=== PATIENT | female | born 1935 | race Caucasian/White ===

== ENCOUNTER 2020-02-13 10:00 | Day surgery (SDC) | payer MEDICARE, OTHER ==
[~2020-02-13] VITALS: Ht 160 cm; Wt 63.0 kg
[~2020-02-13 10:00] MED LIST: B-121000 MCG PO; CARVEDILOL25 MG PO; COUMADIN2.5 MG PO; COUMADIN5 MG PO; FERGON240 MG PO; LORAZEPAM1 MG PO; LOVASTATIN20 MG PO; MELATONIN10 M2 PO; OMEPRAZOLE20 MG PO; SALSALATE500 MG PO; VITAMIN D31000 UNI1 PO
[2020-02-13] MEDS ORDERED: HYDROCODON-ACE1 EA10 PO (14:01)
--- NOTE | 2020-02-13 14:06 | NUR ---
02/13/20 1406 Marya Soni 1401- PT TO PACU IN SF POSITION. EYES OPEN AND FOLLOWS COMMANDS APPROPRIATELY. DENIES PAIN OR NAUSEA. CMS TO L EXTREMITY INTACT. BREATHING EASY AND UNLABORED. SPO2 >95% ON ROOM AIR.
--- NOTE | 2020-02-14 07:06 | OR ---
[facility] [address] [place], [place] [address] Signed DATE OF OPERATION: 02/13/2020 SURGEON: Rodney Chiu MD POSTOPERATIVE DIAGNOSIS: Left carpal tunnel syndrome. POSTOPERATIVE DIAGNOSIS: Left carpal tunnel syndrome. PROCEDURE PERFORMED: Left carpal tunnel release. SPRING TESTER: Toñito SOLANO. ANESTHESIA: Benny block. TOURNIQUET TIME: 20 minutes. BRIEF HISTORY: Ashlyn is an 84-year-old female with progressive worsening of numbness and tingling in her hands. Risks and benefits of operative treatment were discussed with her and she elected to proceed. DESCRIPTION OF PROCEDURE: Once consent was obtained, she was taken to the operating room after adequate anesthesia. She was placed on operating room table. All downside pressure points were well padded. The left hand was prepped and draped in a standard sterile fashion. The carpal tunnel was approached through a 1.5 cm incision in the distal wrist crease. This was carried through the soft tissue and the palmaris longus was identified, retracted, and protected. The transverse carpal ligament was then dissected free of overlying soft tissue and under loupe magnification was released proximally 1 cm distally to the distal extent. This was palpated using the [place] and found to be completely released. The wound was copiously irrigated with antibiotic solution, closed with 3-0 nylon and injected with 4 mL of 0.25% plain Marcaine. Wound was dressed with bacitracin, Adaptic, 4 x 8s, and gauze. She tolerated the procedure well. All sponge, needle, and instrument counts were correct. Electronically Signed By: RODNEY CHIU MD 02/14/20 0706 PATIENT NAME: ASHLYN ANDRADE OPERATIVE REPORT DATE OF : 35 REPORT #: [id number] PHYSICIAN: RODNEY CHIU MD PCP: GUS RICE MD REPORT IS CONFIDENTIAL AND NOT TO BE RELEASED WITHOUT AUTHORIZATION [address] [address] Signed Rodney Chiu MD /MODL /[id number] Copies: ~ Electronically Signed By: RODNEY CHIU MD 02/14/20 0706 PATIENT NAME: ASHLYN ANDRADE OPERATIVE REPORT DATE OF : 35 REPORT #: [id number] PHYSICIAN: RODNEY CHIU MD PCP: GUS RICE MD REPORT IS CONFIDENTIAL AND NOT TO BE RELEASED WITHOUT AUTHORIZATION
== END 2020-02-13 14:40 | disposition home or self-care (01) ==
LOC: DS 10:00
PROVIDERS: Specialist
PROC: 01N50ZZ Release Median Nerve, Open Approach (ICD-10-PCS; principal; 2020-02-13 11:45)
DX: G56.02 Carpal tunnel syndrome, left upper limb (principal); Z79.899 Other long term (current) drug therapy; Z87.891 Personal history of nicotine dependence
CPT/HCPCS: 01810; J0690; J2704; J7121

== ENCOUNTER 2020-08-05 22:09 | Inpatient (IN) | payer MEDICARE, OTHER ==
[~2020-08-05] VITALS: Ht 160 cm; Wt 67.1 kg
[~2020-08-05 22:09] MED LIST changes: -COUMADIN5 MG PO; +HYDROCODON-ACE1 EA10 PO; -MELATONIN10 M2 PO; +MELATONIN5 M2 PO; +WARFARIN SODIUM5 MG PO
--- NOTE | 2020-08-06 07:02 | NUR ---
pt ARRIVES TO [place] VIA STRETCHER. VILLA CATHETER IN PLACE. IVF INFUSING WNL. TRANSFERRED TO HOSPITAL BED WITH 4PA. pt PAINFUL WITH TRANSFER, RATES PAIN 7/10 IN LEFT LEG. PRN PAIN MEDICATION ADMINISTERED. ORIENTATION TO ROOM, NPO STATUS PROVIDED. CALL LIGHT AND PERSONAL SUPPLIES IN REACH. pt VERBALIZES UNDERSTANDING TO NPO, USING CALL LIGHT.
[2020-08-06] MEDS ORDERED: VITAMIN B-6100 MG PO (09:14)
--- NOTE | 2020-08-06 09:20 | NUR ---
ROUNDED WITH DR BALES. PLAN OF CARE DISCUSSED WITH PT. ASSISTED PRIMARY NURSE IN PLACING BUCKS TRACTION. PT TOLERATED OKAY.
--- NOTE | 2020-08-06 09:38 | NUR ---
Medications reconciled with patient interview
--- NOTE | 2020-08-06 09:48 | NUR ---
5lbs bucks traction placed to LLE per provider order. LLE is shortenned with external rotation. CMS intact, strong pedal pulse, cap refill less than three seconds. Patient educated on traction and plan of care. Ensure provided to patient at this time.
--- NOTE | 2020-08-06 09:48 | NUR ---
5lbs bucks traction placed to LLE per provider order. LLE is shortened. CMS intact, good pedal pulse, cap refill less than three seconds. Patient educated on tranction and plan of care. Ensure provided to patient at this time.
--- NOTE | 2020-08-06 09:53 | NUR ---
PATIENT IN BED RESTING. VITALS AND I&O'S CHARTED. AM CARE DONE. CALL LIGHT IN REACH. NO FURTHER NEEDS AT THIS TIME.
--- NOTE | 2020-08-06 12:05 | NUR ---
[place] 7.5/325mg po admin for reports of 12/20 LLE.
--- NOTE | 2020-08-06 13:30 | NUR ---
Spoke with Ashlyn and updated I spoke with Dr. Chiu this am. He states patient will need to be nwb for 4-8 weeks. Pt plans on going home and having a friend assist her. She has contacted friends and neighbors to find someone to stay and care for her and her animals. I discussed with her this will be personal care such and help getting on and off the toilet, wiping, bathing. She will need someone who can assist her with personal care and not just to care for her animals. We discussed Dr would prefer she go to a SNF until she can bear weight. Pt declines, I requested she keep an open mind and work with OT/PT and this will tell her what she will be able to manage at home. She does state concern she will get hurt again and the would be upset if he had to do another surgery. I will check on pt daily, at this time she remains completely against placement. She does have 3 children and 2 who live in the area. She does not want to ask them for help with her 3 dogs and 2 cats. She is in a one story with 2 steps. She states she uses a cane daily.
--- NOTE | 2020-08-06 14:48 | NUR ---
PT ALERT, ORIENTED AND SITTING UP IN BED WATCHING TV. PT'S FALL HAS REALLY DERAILED HER LIFE SHE DESCRIBES IT. CONCERNED ABOUT HER ANIMALS AND FOLLOWING SURGERY TOMORROW WOULD LIKE VISIT FROM . PT FEELS SHE NEEDS TO REESTABLISH HER CARON THAT SHE HAS BEEN NEGLIGENT ON FOR SOME TIME. GAVE ENCOURAGEMENT, DISCUSSED POST SURGERY CARE. PT ADAMANT ABOUT NOT GOING TO SNF FOR REHAB. FEELS SHE CAN DO JUST FINE WITH SOME HELP FROM FRIENDS. DISCUSSED SOME POSSIBILITIES. PT SAID SHE WILL CONSIDER AND WILL WAIT TO VISIT WITH LILY PIPER AGAIN. PT REQUESTED PRAYER, ACCEPTED [facility]RIS AND [facility]W
--- NOTE | 2020-08-06 15:04 | NUR ---
PATIENT IN BED WATCHING TV. VITALS AND I&O'S CHARTED. TELE #7 PUT ON UPON RN REQUEST. CALL LIGHT IN REACH. NO FURTHER NEEDS AT THIS TIME.
--- NOTE | 2020-08-06 15:23 | NUR ---
IMAGING IN FOR ECHO.
--- NOTE | 2020-08-06 17:08 | NUR ---
PT IN BED RESTING. IN TO DO ASSESSENT PATIENT ORIENTED TO TIME AND PLACE. DENIES ANY NEED OR DISCOMFORT. PT STATES PAIN IS AT A "5" AND SHE DOES NOT NOTICE THE PAIN UNTIL SHE TRIES TO MOVE HER LEG. HEATH TRACTION ON HER LLE AND SPD ON THE LRE. HEAL PROTECTORS IN PLACE. NO CONCERNS AT THIS TIME. CALL LIGHT WITHIN REACH.
--- NOTE | 2020-08-06 18:21 | NUR ---
Patient in bed watching tv at this time. Patient reports her left leg feels better in the tranction. CMS remains intact to LLE. 5lbs traction continues to be intact and free of obstruction. Patient denies needs.
--- NOTE | 2020-08-06 18:26 | NUR ---
PATIENT IN BED WATCHING TV. ORAL CARE DONE. VITALS AND I&O'S CHARTED IN. CALL LIGHT IN REACH. NO FURTHER NEEDS AT THIS TIME.
--- NOTE | 2020-08-06 19:20 | NUR ---
CHARGE NURSE REPORT RECEIVED FROM [facility]. PT IN BED, BUCKS TRACTION, WEIGHT SUSPENDED FREELY. NO NEEDS AT THIS TIME.
--- NOTE | 2020-08-06 19:50 | NUR ---
REPORT RECEIVED FROM DAY SHIFT RN. PT LYING IN BED ALERT AND ORIENTED. #5 BUCKS TRACTION HANGING FREELY FROM BED. LEFT LEG SHORTENED AND EXTERNALLY ROTATED. CMS INTACT. PT REPORTS PAIN IS TOLERABLE AT THIS TIME. NO FURTHER NEEDS. WHITE BOARD UPDATED. CALL LIGHT IN REACH.
--- NOTE | 2020-08-06 19:56 | NUR ---
SPOKE WITH DR. BALES REGARDING PT'S O6OO SCHEDULED PO PAIN MEDS. DR. BALES INSTRUCTED TO HOLD MEDICATIONS GIVEN PT NPO STATUS AND [address] BALES OK'D TO GIVE 0200 SCHEDULED ULTRAM WITH A SIP OF WATER.
--- NOTE | 2020-08-06 22:20 | NUR ---
EVENING ASSESSMENT COMPLETE. SCHEDULED MEDS ADMINISTERED PER EMAR. PT REPORTS PAIN 3/10 IN LEFT LEG BUT IS TOLERABLE " LONG IT DOESN'T MOVE". LLE IN #5 BUCKS TRACTION HANGING FREELY FROM THE BED. CMS INTACT. VILLA PATENT WITH CLEAR YELLOW URINE. HR IRREGULAR. TELE #[address], HR IN THE 70'S. ASSISTED PT TO REPOSITION IN BED. DENIES QUESTIONS OR CONCERNS. BED ALARM FOR SAFETY. CALL LIGHT IN REACH.
--- NOTE | 2020-08-07 00:59 | NUR ---
NEW BAG IVF HUNG. PT AWAKENS WHEN THIS QUARTER SECTION IRONER IN ROOM. PT AGREES SHE IS COMFORTABLE. DENIES NEEDS.
--- NOTE | 2020-08-07 02:33 | NUR ---
VS AND I&O COMPLETE. PT REPORTS LEFT HIP PAIN 08/22. SCHEDULED MEDS ADMINISTERED WITH SIPS OF WATER PER DR. BALES. PT NPO OTHERWISE. 5# BUCKS TRACTION IN PLACE. CMS INTACT. HP IN PLACE. VILLA PATENT. IVF INFUSING PER ORDER. NO FURTHER NEEDS AT THIS TIME. CALL LIGHT IN REACH.
--- NOTE | 2020-08-07 05:10 | NUR ---
V/S AND I&O TAKEN AND RECORDED. PRE OP WIPES DONE.
--- NOTE | 2020-08-07 05:38 | NUR ---
PRE-PROCEDURE WIPE DOWN COMPLETE. CLEAN LINEN AND GOWN PROVIDED. PT REPORTS PAIN IN LEFT HIP IS "STABILIZED" BUT DOES REPORT SPASMS WITH MOVEMENT. LEFT LEG CONTINUES TO BE SWOLLEN. ALSO NOTED TO BE SHORTENED AND EXTERNALLY ROTATED. #[address], ROPE AND WEIGHT FREE FROM TOUCHING ANYTHING. CMS INTACT. SCD'S AND HP IN PLACE. VILLA PATENT. IVF INFUSING. PT DENIES QUESTIONS OR CONCERNS. CALL LIGHT IN REACH.
--- NOTE | 2020-08-07 06:15 | NUR ---
PT OFF FLOOR TO PACU WITH OR NURSE MARILEE.
--- NOTE | 2020-08-07 07:35 | NUR ---
this rn received report from veronika leblanc. pt off floor for procedure at this time
--- NOTE | 2020-08-07 10:27 | NUR ---
08/07/20 Javier7 Zenaida Chiu 0926 PT TO PACU FROM OR SLEEPING O2 ON 7L VIA MASK.
--- NOTE | 2020-08-07 10:50 | NUR ---
Assisted Rn from PACU to move bed from hallway into patients room on arrival to floor. Pt is awake and denies complaint. Denies pain and is drowsy.
--- NOTE | 2020-08-07 10:53 | NUR ---
PT ARRIVED FROM PACU VIA STRETCHER. THIS RN RECEIVED REPORT AND TO ASSUME CARE OF PT. PT ARRIVE ON ROOM AIR BUT DOES GET DROWSY THIS RN TO UT PT ON 1L NC. PT TOELRATING WELL ND IS ALERT AND ORIENTED X4. PT STATES PAIN HER PAIN IS AT A 2/10 AND IS TOLERABLE AT THIS TIME. PT STATES THAT SHE HAS NO NAUSEA AT THIS TIME. PTS DRESSING IS CLEAN/ DRY/ INTACT- CRYO CUFF IN PLACE
--- NOTE | 2020-08-07 11:15 | NUR ---
THIS RN IN PTS ROOM WITH [facility] SUPERVISOR FRYER F[employer] SEVEN. PT STATES THAT HER PAIN IS 2/10. OTHERWISE PT IS DOING WELL. PTS INCISION IS CLEAN/ DRY/ INTACT
--- NOTE | 2020-08-07 12:06 | EKG ---
[facility] [address] [facility] [place] [address] Signed Sinus rhythm with premature supraventricular complexes ST \T\ T wave abnormality, consider lateral ischemia Abnormal ECG When compared with ECG of 09-FEB-2020 15:52, premature supraventricular complexes are now present Nonspecific T wave abnormality now evident in Inferior leads T wave inversion now evident in Lateral leads QT has lengthened Confirmed by GUSTAVO CUI MD ([id number]) on 08/07/2020 12:05:58 PM Electronically Signed By: GUSTAVO CUI MD 08/07/20 1206 PATIENT NAME: PIERRE ANDRADE Electrocardiogram DATE OF : 35 PHYSICIAN: GUSTAVO CUI MD REPORT #: [id number] REPORT IS CONFIDENTIAL AND NOT TO BE RELEASED WITHOUT AUTHORIZATION
--- NOTE | 2020-08-07 12:39 | NUR ---
PT BACK FROM SURGERY. NO COMPLICATIONS. VITALS LOOK GOOD. PT ORIENTEL TO TIME AND PLACE. ABLE TO MOVE BOTH LOWER EXTREMTIES AND FEEL TOUCH. REPORTS PAIN LEVEL AT A 3. INCISION COVERED. DRESSING CLEAN DRY AND INTACT. SCD, CYROCUFF, AND COMPRESSION SOCKS IN PLACE. VILLA INTACT WITH CLEAR YELLOW URINE. PT IN BED EATING LUNCH. PT DENIES ANY CONCERNS OR NEEDS AT THIS TIME. CALL LIGHT WITHIN REACH.
--- NOTE | 2020-08-07 13:00 | NUR ---
CPOX ALARMING. THIS NURSE TO BEDSIDE, PTS SPO2 88% ON RA. INSTRUCTED PT TO TAKE DEEP BREATHS. SPO2 DID NOT IMPROVE. 2L NC PLACED. SPO2 NOW 93%.
--- NOTE | 2020-08-07 13:20 | NUR ---
PT BACK FROM PACU-IN [facility]. PT SAID SHE HAS NO PAIN AT THE MOMENT. PT DID SAY SHE WOULD LIKE TO HAVE FREIGHT RECEIVER VISIT TODAY. WILL INFORM FR KNIGHT. GAVE BLESSING, PT'S LUNCH WAS DELIVERED. SHE SEEMED VERY INTERESTED. WILL FOLLOW.
--- NOTE | 2020-08-07 13:23 | NUR ---
IN TO TAKE VITALS POST OP. PATIENT AWAKE AND ALERT IN BED. PHYSICAL THERAPY IN WITH PT. CALL LIGHT WITH IN REACH.
--- NOTE | 2020-08-07 14:06 | NUR ---
IN TO ADMINSTER SCHEDULED PAIN MEDICAIOTNS AND ANTIBIOTIC. PT SITTING IN BED. REPROTS SHE STOOD WITH PHYSICAL THERAPY TODAY. PT IS DENIYING PAIN AT THIS TIME. SCD ON RIGHT LEG. TEDHOSE IN PLACE. CRYOCUFF ON. 2L NC IN PLACE. CALL LIGHT IN REACH.
--- NOTE | 2020-08-07 16:27 | NUR ---
this rn in pts room with [facility] [employer] tami. pt states that she is doing well with no pain at this time. pt does state that she is feeling itchy but is not wanting benadryl for the itching at this time. pt in need of nothing else as this time
--- NOTE | 2020-08-07 19:11 | NUR ---
IN ROOM FOR REPORT, PT IS AWAKE IN BED. SHE DENIES NEEDS AT THIS TIME. CALL LIGHT IS CLOSE.
--- NOTE | 2020-08-07 21:00 | NUR ---
V/S AND I&O TAKEN AND RECORDED. SAMEERA/VILLA CARE DONE BY PATIENT AND THIS RETAIL INVENTORY CONTROL CLERK. WARM WIPES PROVIDED. PATIENT WIPED HER FACE AND HANDS. PATIENT STATED SHE WILL DO ORAL CARE IN A.M.
--- NOTE | 2020-08-07 21:25 | NUR ---
IN ROOM TO ADMINISTER MEDICATIONS AND ASSESS PT. DRESSING TO L HIP IS INTACT AND THERE IS A SMALL SPOT OF SHADOWING NOTED ON DRESSING BENEATH THE ABD. SHE RATES PAIN LOW BETWEEN 2-3/10 WHICH IS WELL CONTROLLED WITH SCHEDULED TRAMADOL AND TYLENOL. PT REPORTS DOING PT EXERCISES IN BED. SHE DENIES ANY N/T IN LEGS/FEET. PT DENIES FURTHER NEEDS, CALL LIGHT IS CLOSE.
--- NOTE | 2020-08-07 22:55 | NUR ---
PT IS RESTING WITH EYES CLOSED, RR IS EVEN AND NONLABORED. CALL LIGHT IS CLOSE.
--- NOTE | 2020-08-07 23:40 | NUR ---
ADMINISTERED ANCEF, PT IS RESTING WITH EYES CLOSED, RR IS EVEN AND NONLABORED. CALL LIGHT IS CLOSE.
--- NOTE | 2020-08-08 01:33 | NUR ---
PT IS RESTING WITH EYES CLOSED, RR IS EVEN AND NONLABORED. CALL LIGHT IS CLOSE.
--- NOTE | 2020-08-08 02:56 | NUR ---
ADMINISTERED SCHEDULED ULTRAM AND NEW BAG OF LR IS INFUSING. PT CONTINUES TO REPORT PAIN AT 2/10. CRYOCUFF IS IN PLACE ON L HIP AND THERE IS SCANT SHADOWING ON THE DRESSINGS UNDER THE ABD PADS AND ELLEN WRAP IS IN PLACE OVER THE TOP. PT DENIES NUMBNESS AND TINGLING. SHE HAS AES ON L LEG AND SCD ON R LEG. PT DENIES PASSING GAS YET AND DENIES NAUSEA. HEEL PROTECTORS ARE IN PLACE AND CALL LIGHT IS CLOSE. IV IS INFUSING FINE.
--- NOTE | 2020-08-08 03:27 | NUR ---
PT'S CPOX WAS BEEPING SHE DROPPED TO 88%. PLACED PT BACK ON 1/2L NC. SHE DENIES NEEDS AT THIS TIME. CALL LIGHT IS CLOSE AND IV IS INFUSING FINE.
--- NOTE | 2020-08-08 04:20 | NUR ---
PT IS RESTING WITH EYES CLOSED, RR IS EVEN AND NONLABORED. CALL LIGHT IS CLOSE AND IV IS INFUSING FINE.
--- NOTE | 2020-08-08 06:26 | NUR ---
IN ROOM TO ADMINISTER MORNING MEDICATIONS. PT REPORTS PAIN AT 1/10 AT THIS TIME. PT DENIES FURTHER NEEDS AT THIS TIME. CALL LIGHT IS CLOSE.
--- NOTE | 2020-08-08 06:52 | NUR ---
PT SLEPT WELL LAST NIGHT AND PAIN WAS WELL CONTROLLED WITH TYLENOL AND ULTRAM. SHE HAS CRYOCUFF ON L HIP, HEEL PROTECTORS, SCD ON R LEG, AES ON L LEG. SPIKA DRESSING IN PLACE ON L HIP WITH VERY LITTLE SHADOWING ON DRESSING UNDERNEATH. PT DENIES N/T, CMS INTACT. PT REQUIRED .5LNC OF O2 WHILE SLEEPING WHICH IS DOWN FROM 1LNC DURING THE DAY YESTERDAY AFTER SURGERY. PT IS NOT PASSING GAS YET.
--- NOTE | 2020-08-08 07:25 | NUR ---
this rn received report from brant leblanc. pt awake at this time and states that her pain is 1/10, pt states that it gets worse when she moves it, this rn discussed with pt that pain was expected due to pts fall. pt states that needs noting at this time and is comfortable
--- NOTE | 2020-08-08 08:19 | NUR ---
THIS RN IN PTS ROOM TO DO PTS MORNING ASSESSMENT. PT STATES THAT HER PAIN IS CONTROLLED AT REST BUT THE PAIN DOES INCREASE WITH MOVEMENT. THIS RN DISCUSSED WITH PT THAT SHE DID HAVE A FALL AND THAT MIGHT CAUSING A BIT MORE SORENESS. PT STATES UNDESTANDING. PT HAS NO OTHER CONCERNS TO NOTE AT THIS TIME
--- NOTE | 2020-08-08 10:12 | NUR ---
this rn in pts room to give pt her scheduled tramadol. pt on the phone with a family memeber to figure out what the plan is for her dogs.
--- NOTE | 2020-08-08 11:00 | NUR ---
Received call from Claudia, pt's daughter. She states she is very concerned. Mom has been having neighbors help. Neighbors have called the children and state they are unable to cont. to care for pt's dogs and cats. They also are unable to assist pt when she geos home. Discussed with daughter we have been speaking with Ashlyn. She is willing to work with PT/OT to determine what she is capable of. She was unable to get up without assist. Dr. Chiu spoke with her this morning and stated his concerns. I will see her later today. She is wanting to know what they can do, I suggested a family meeting to speak with pt. They will call with a time for tomorrow. They will let mom know neighbors can no longer help. They have taken her dogs to care for them.
--- NOTE | 2020-08-08 11:13 | OR ---
[facility] [address] [facility] [place] [address] Signed DATE OF OPERATION: 08/07/2020 SURGEON: Rodney Chiu MD PREOPERATIVE DIAGNOSIS: Left distal femur fracture. POSTOPERATIVE DIAGNOSIS: Left distal femur fracture. PROCEDURE PERFORMED: Open reduction and internal fixation of left distal femur. RESIDENCE SUPERVISOR: Mignon Gaines PA-C. ANESTHESIA: Spinal. BLOOD LOSS: 150 mL. IMPLANTS: A 14-hole 4.5 mm Synthes Condylar Plate with 14 screws and 1.7 mm cable. BRIEF HISTORY: Ashlyn is an 85-year-old female, who suffered a ground level fall after tripping over a mop bucket. She had a deformity and inability to bear weight. She was transported to the emergency department, where radiographs revealed a displaced supracondylar distal femur fracture. I was not on-call, however, I was contacted and agreed to accept the patient the next day. She did have a total hip on that side with a cemented stem. The risks and benefits of operative treatment discussed with her after clearance and medical service, and she was taken to the operating room. The plan because of her osteopenia and the proximal femoral stem was to plate this and bypassed the distal tip of the stem. Risks and benefits were discussed at length, and she understands, wished to proceed. DESCRIPTION OF PROCEDURE: Once consent was obtained, she was taken to the operating room. After adequate anesthesia, she was placed on operating table and all downside pressure points were well padded. The left leg was prepped and draped in a standard sterile fashion and the Electronically Signed By: RODNEY CHIU MD 08/08/20 1113 PATIENT NAME: ASHLYN ANDRADE OPERATIVE REPORT DATE OF : 35 REPORT #: [id number] PHYSICIAN: RODNEY CHIU MD PCP: GUS RICE MD REPORT IS CONFIDENTIAL AND NOT TO BE RELEASED WITHOUT AUTHORIZATION [facility] [address] [place], [place] [address] Signed distal femur was approached through standard lateral approach, carried through skin and subcutaneous tissue. The IT band was divided longitudinally and the muscle was bluntly dissected off the distal femur. We were able to feel the fracture and reduced it reasonably well. We then took the plate and measured against her femur and the 14-hole was selected. The plate was then slid from the distal incision along the femur proximally until the condylar section was centered on the distal femur; this was then held using a single pin through the pin guide. The fracture had displaced a little bit during this procedure and it was reduced and held with a large clamp. We then placed a single screw in the distal portion of the condylar plate and an another screw in the supracondylar region. This tightened the distal fragment to the plate and anatomic alignment. We then checked the reduction and placed two screws above the fracture through the plate with excellent purchase. We then went proximally and placed two screws just below the tip of the stem. The remaining screws in the distal condylar plate were placed using 5-0 locking screws; two more screws were placed in the shaft. Once this was completed, we went proximally, made a 3rd approach to the femur and carried through the IT band and split the vastus longitudinally. We came down onto the plate and placed two unicortical screws through the plate in a locking fashion. A cable was then passed around the femur and passed through a cable eyelet in the plate and tensioned to 50 kg of tension; it was then locked and crimped. The cable end was cut off. The final radiograph showed the plate to be in good alignment, the fracture to be anatomically reduced, and all screws to be good length. The wounds were copiously irrigated with antibiotic solution and closed with #2 Stratafix for the ITB band, 2-0 Stratafix for the subcutaneous tissue, and trudy for the skin. The wounds were dressed with VAC, ANDREE dressing and ABDs and Panfilo wrap. She was awakened and taken to the recovery room in satisfactory condition. All sponge, needle, and instrument counts were correct. Rodney Chiu MD BA/MODL /[id number] Copies: Electronically Signed By: RODNEY CHIU MD 08/08/20 1113 PATIENT NAME: ASHLYN ANDRADE OPERATIVE REPORT DATE OF : 35 REPORT #: [id number] PHYSICIAN: RODNEY CHIU MD PCP: GUS RICE MD REPORT IS CONFIDENTIAL AND NOT TO BE RELEASED WITHOUT AUTHORIZATION [address] [address] Signed ~ Electronically Signed By: RODNEY CHIU MD 08/08/20 1113 PATIENT NAME: ASHLYN ANDRADE OPERATIVE REPORT DATE OF : 35 REPORT #: [id number] PHYSICIAN: RODNEY CHIU MD PCP: GUS RICE MD REPORT IS CONFIDENTIAL AND NOT TO BE RELEASED WITHOUT AUTHORIZATION
--- NOTE | 2020-08-08 11:18 | NUR ---
Met with patient his morning, she says that she is happy with her care. Pt says that they have been answering her call light timely "when I push the right button", she does not complain of pain at this time. Pt denies needs at this time, and has no requests at this time.
--- NOTE | 2020-08-08 11:30 | NUR ---
Spoke with Ashlyn, she states Dr. Chiu spoke with her and she feels it's best to go to a SNF. She would like to go to [facility] in [place]. Let her know I will send her chart. Updated her daughter Claudia had called and she is aware. She states her children are all trying to help. chart faxed to Briana at [facility]. Called and updated Claudia pt has decided to go to [facility].
--- NOTE | 2020-08-08 12:00 | NUR ---
this rn in pts room to asssist pt to use the insentive spirometer. pt able to get to 1000 on the scale. pt states that her pain is controlled. this rn got pt hooked up to bilateral scd's
--- NOTE | 2020-08-08 13:54 | NUR ---
PT ALERT, ORIENTED AND WATCHING TV. SN IN , PT CHEEERFUL, REQUESTED LEGAL OFFICE ADMINISTRATOR TO VISIT. INFORMED FR EUGENE. GAVE BLESSING, WILL FOLLOW
--- NOTE | 2020-08-08 14:36 | NUR ---
2PA WITH FWW AND P/T PATIENT TO CHAIR AND BACK TO BED. NO WEIGHT ON LEFT FOOT. VITALS AND I&OS CHARTED. VILLA EMPTIED.
--- NOTE | 2020-08-08 15:30 | NUR ---
Message from Lori Mcgee. Briana states she thinks they can accept this pt on Thursday. She is awaiting a call to confirm staffing. She will let me know tomorrow.
--- NOTE | 2020-08-08 15:31 | NUR ---
THIS RN IN PTS ROOM TO DO PTS ASSESSMENT AND GIVE PT HER SCHEDULED PAIN MEDS. PT STATES THAT SHE HAS WORKED WITH PHYSCIAL THERAPY TWICE TODAY AND IS NOT INTERESTED IN GETTING UP TO THE CHAIR FOR DINNER THIS EVENING. PT STATES THAT SHE HAS INCREASED PAIN WITH MOVEMENT AND IS PRETTY TIRED. PT IS USING INCENTIVE SPIROMETOR WELL AND IS RECEPTIVE TO TEACHING
--- NOTE | 2020-08-08 17:22 | NUR ---
THIS RN IN PTS ROOM TO MAKE SURE PT GOT HER DINNER AND TO REASSES PTS PAIN MEDS. PT STATES THAT SHE IS STILL 5/10 AFTER WORKING WITH PHYSCIAL THERAPY BUT THE PAIN IS TOLERABLE AT THIS TIME
--- NOTE | 2020-08-08 19:25 | NUR ---
SHIFT REPORT RECEIVED FROM DAYSHIFT WHITNEY HAYNES AT BEDSIDE. pt AWAKE AND RESTING IN BED, RR EVEN AND UNLABORED. DRESSING TO LEFT HIP INTACT, SCANT SEROSANGUINEOUS SHADOWING NOTED. ABD PADS WITH SPIKA DRESSING ALSO IN PLACE WITH CYRO CUFF. pt DENIES NEEDS OR CONCERNS AT THIS TIME. CALL LIGHT IN REACH. BOARD UPDATED.
--- NOTE | 2020-08-08 21:55 | NUR ---
PT'S IV PUMP WAS BEEPING, IV FLUID IS NOW INFUSING FINE. PT WOULD LIKE TO TAKE HER EVENING MEDS SO SHE CAN GO TO SLEEP. NOTIFIED PRIMARY RN KATYA, SHE IS ON HER WAY IN TO SEE THE PT NOW.
--- NOTE | 2020-08-08 21:58 | NUR ---
ASSESSMENT COMPLETE, SCHEDULED MEDS GIVEN (SEE EMAR). VSS, pt REPORTS 8/10 PAIN, SCHEDULED PAIN MEDS GIVEN. EDUCATION GIVEN ON CALLING AMMUNITION ASSEMBLY I LABORER IF/WHEN PAIN IS INCREASING OR BECOMES INTOLERABLE. pt VERBALIZES UNDERSTANDING. pT ABLE TO MAKE SUBTLE REPOSITIONS. DRESSING AND SPIKA TO LEFT LEG UNCHANGED SINCE START OF SHIFT. 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 VILLA CARE COMPLETED, VILLA PATENT. NO ADDITIONAL NEEDS, CALL LIGHT IN REACH.
--- NOTE | 2020-08-08 22:04 | NUR ---
PATIENT CALLED MACHINE REPAIR PERSON SYSTEM WANTING TO BE ADJUSTED IN BED SO SHE COULD SLEEP. I TOLD PATIENT THAT I WOULD BE BACK IN ROOM SOON POSSIBLE AFTER ASSISTING ANOTHER PATIENT THAT I WAS IN THE MIDDLE OF HELPING. ONCE BACK IN ROOM VITALS AND I&O WERE COMPLETED. WHITNEY BAL ASSISTED WITH BOOSTING PATIENT IN BED. CRYOCUFF ADJUSTED BACK ONTO PATIENTS LEFT LEG AND CHECKED TO ENSURE IT WAS STILL CHILLED. PATIENT DENIES ANY FUTHER NEEDS AT THIS TIME. CALL LIGHT IN REACH.
--- NOTE | 2020-08-09 00:56 | NUR ---
ROUNDED ON pt, WITH HELP FROM RUSLAN BIRMINGHAM pt ASSISTED WITH REPOSITIONING, PILLOW PLACED UNDER LEFT SIDE. LEFT SIDE REMAINS IN CORRECT ALIGNMENT, KNEES REMAIN LOCKED OUT ON BED SETTINGS. NO ADDITIONAL NEEDS, CALL LIGHT IN REACH.
--- NOTE | 2020-08-09 01:00 | NUR ---
ROUNDED ON pt, WITH HELP FROM RUSLAN B[place]MINGHAM pt ASSISTED WITH REPOSITIONING. LEFT SIDE REMAINS IN CORRECT ALIGNMENT, KNEES REMAIN LOCKED OUT ON BED SETTINGS. NO ADDITIONAL NEEDS, CALL LIGHT IN REACH.
--- NOTE | 2020-08-09 02:30 | NUR ---
SCHEDULED PAIN MEDICATION GIVEN (SEE EMAR), pt REPORTS 5/10 PAIN AND STATES THAT 4/10 PAIN IS TOLERABLE. pt BOOSTED AND REPOSITIONED IN BED, pt REPORTS FEELING SOMEWHAT RESTLESS. HEEL PROTECTORS AND SOCKS REMOVED AT THIS TIME PER pt REQUEST. BILATERAL DONALD HOSE AND SCD'S REMAIN ON. DRESSING REMAINS UNCHANGED, NO FURTHER NEEDS.CALL LIGHT IN REACH.
--- NOTE | 2020-08-09 06:27 | NUR ---
SCHEDULED PAIN MEDICATION GIVEN FOR 5/10 PAIN IN LEFT LEG (SEE EMAR). pt REPORTS NEEDING TO GET OOB FOR BM, pT ASSISTED 2PA WITH FWW TO BSC. VERBALIZES UNDERSTANDING TO CALL WHEN READY, CALL LIGHT IN REACH. pt WEAK, BUT TOLERATED WEL. TIRED AFTERWARDS, BM X1 NOTED. SCD'S AND DONALD HOSE IN PLACE. NO FURTHER NEEDS. NO REDDNESS NOTED TO COCCYX OR BUTTOCKS. CALL LIGHT IN REACH.
--- NOTE | 2020-08-09 07:42 | NUR ---
IN TO HANG NEW BAG OF LR. PT AWAKE WITH VISITOR IN ROOM. RATES LEFT HIP PAIN 4/[address] BALES IN TO SEE PT. DRSG REMAINS INTACT. NEW ORDERS TO REMOVED VILLA.
--- NOTE | 2020-08-09 07:45 | NUR ---
DR. BALES AWARE OF HGB 8.2. ORDERS TO ENCOURAGE ORAL INTAKE AND OFFER ENSURES W/ MEALS TO IMPROVE NUTRITIONAL STATUS, REPORTS LOW HGB POSSIBLY DILUTIONAL.
--- NOTE | 2020-08-09 08:51 | NUR ---
IN TO GIVE MORNING MEDICATION AND COMPLETE ASSESSMENT. VILLA REMOVED WITH ASSISTANCE OF STUDENT NURSE DALILA. PT PAIN IS CURRENTLY WELL MANAGED AT REST, RATED A 2/10. IVF DC'D WELL. PT INSTRUCTED TO USE CALL LIGHT FOR ASSISTANCE WHEN SHE NEXT FEELS URGE TO URINATE. REPOSITIONED IN BED AND UP EATING BREAKFAST. NO OTHER NEEDS AT THIS TIME.
--- NOTE | 2020-08-09 09:30 | NUR ---
IN TO PREMEDICATE PT W/ TRAMADOL PRIOR TO PHYSICAL THERAPY. PT NOW RATES LT HIP PAIN 5/10 AT REST.
--- NOTE | 2020-08-09 11:42 | NUR ---
DEYANIRA'Monique MILK OF [facility] MED ORDER SINCE PT HAS BEEN SUCCESSFUL IN HAVING BM. SEE EMAR.
--- NOTE | 2020-08-09 12:46 | NUR ---
BOWEL MEDICATIONS HAVE BEEN EFFECTIVE AND PT HAD VERY LARGE BM IN BED. UP TO SHOWER. 2 PERSON ASSIST W/ FWW. TOLERATED MODERATELY WELL. PT NOW BACK TO BED. DONALD NORWOOD AND SCD'S APPLIED. SITTING UP EATING LUNCH. PAIN HAS DECREASED FROM 8/10 TO 5/10 AT REST. WILL GIVE SCHEDULED TRAMADOL. PT ALSO ABLE TO VOID ADEQUATE AMOUND OF URINE, HOWEVER ALSO UNMEASURED W/ INCONTINENT STOOL EPISODE. CALL LIGHT IN REACH, PT CALLS APPROPRIATELY.
--- NOTE | 2020-08-09 13:39 | NUR ---
PT ALERT, ORIENTED AND VISITING WITH HER DAUGHTER JUVENCIO. PT SEEMED TO ENJOY AND APPRECIATE THE COMMERCIAL RELIEF DRIVER'S VISIT WED. REQUESTED FR LOW TO VISIT TODAY. I WILL INFORM HIM. PT SEEMS TO BE PLEASED HER DAUGHTER IS HERE. GAVE BLESSING, WILL FOLLOW NEEDED
--- NOTE | 2020-08-09 14:30 | NUR ---
Called and left a message for Briana asking if she could confirm admission on Thursday for this pt. Printed SNF orders at left at dictation for Dr. Chiu.
--- NOTE | 2020-08-09 14:52 | NUR ---
PHYSICAL THERAPY IN TO WORK WITH PT. HELPED TO BSC W/ ASSISTANCE FROM THIS RN. PT ABLE TO VOID 400 MLS YELLOW URINE. PT NOW BACK IN BED, DONALD NORWOOD AND SCD'S IN PLACE. POLAR CARE UTILIZED WHEN PT IS IN BED. POST VOID RESIDUAL SHOWS 105 MLS IN BLADDER. WILL CONTINUE W/ PVR TO ENSURE THAT PT IS NOT CONTINUING TO RETAIN. PT STATES NOW THAT SHE IS IN BED HER PAIN IS "LITTLE TO NONE". 18 G RFA IV STILL FLUSHING WELL AND REMAINS PATENT. PT NOW RESTING, CALL LIGHT IN REACH.
--- NOTE | 2020-08-09 15:50 | NUR ---
Spoke with Briana from [facility]. She states they are unable to take Ashlyn until Thursday. Informed I will let Dr. Chiu know. Pt will also need a covid swab 24 [address] Chiu updated and Leela notified and will pass on to charge nurse for Thursday covid swab. SNF Orders for Sat. shredded.
--- NOTE | 2020-08-09 16:41 | NUR ---
CLINICAL INSTRUCTOR RADHA AND STUDENT NURSE DALILA IN TO GIVE PT SCHEDULED WARFARIN. PT ASKING TO USE BATHROOM. THIS RN HELPED PT TO BSC. UTILIZED FWW TO PIVOT TRANSFER TO [facility]. PT VOIDED 350 MLS AND HAD SMALL SOFT BM. PT NOW BACK TO BED. REPORTS INCREASED LLE PAIN 8/10 W/ MOVEMENT, 4/10 AT REST. BLADDER SCANNED AND 95 MLS NOTED FOR PVR. CONTINUING TO ENCOURAGE ORAL INTAKE. PT EATING APPROX 50% OF BREAKFAST AND LUNCH. ALSO GIVEN ENSURES WITH/BETWEEN MEALS. DRSG REMAINS INTACT, LITTLE TO NO DRAINAGE NOTED SINCE VISUALIZED THIS MORNING. PROPPED SLIGHTLY ONTO RIGHT SIDE WITH PILLOW SUPPORT ALONG ENTIRE LLE. CALL LIGHT IN REACH.
--- NOTE | 2020-08-09 18:13 | NUR ---
[facility] CLINICAL INSTRUCTOR RADHA AND STUDENT NURSE DALILA IN TO GIVE LIPITOR AND TRAMADOL. HELPED PT TO COMMODE TO VOID. PT HAS VOIDED 1250 MLS SINCE ALLEN MCMILLAN'D. NO LONGER DOING POST VOID RESIDUALS AT THIS TIME. PT REMAINS TOE-TOUCH TO LLE. PAIN HAS DECREASED TO 4/10 AT REST SINCE RECEIVING TRAMADOL. POLAR CARE REFILLED. PT IS TO GO TO REHAB FACILITY ON THURSDAY. COVID SWAB FOR ACCEPTANCE TO BE DONE THURSDAY. RESTING BACK IN BED. VSS. SIPPING ON ENSURE. CALL LIGHT IN REACH. NO OTHER NEEDS AT THIS TIME.
--- NOTE | 2020-08-09 19:28 | NUR ---
PATIENT GOT A SHOWER TODAY. BED LINENS WERE CHANGED.
--- NOTE | 2020-08-09 20:30 | NUR ---
2PA PIVOT TO BSC WITH RUSLAN CUETO, SHE IS NOW BACK IN BED. PRIMARY RN SELWYN IS NOW IN ROOM WITH PT.
--- NOTE | 2020-08-09 20:30 | NUR ---
IN TO ASST PT UP TO THE BSC, 2PA FWW, THEN BACK TO BED, VITALS TAKEN AT THIS TIME, RN IN RM NOW AT THIS TIME, NO FURTHER NEEDS AT THIS TIME
--- NOTE | 2020-08-09 20:39 | NUR ---
On room air, coop with assessments, Up to br with 2PA?FWW, voided, back to bed. L hip Opticoat dressing in place, cryocuff in place, scds, mahesh hose and heel protectors. IS at bedside. Tolerated walking to br and back to bed well. no c/o pain. SL RW patent. call light and fluids at bedside
--- NOTE | 2020-08-09 23:38 | NUR ---
2PA PIVOT TO BSC WITH NORY MERCER. SHE IS NOW BACK IN BED AND REPORTING PAIN 9/10. SHE ALSO STATES BOTH THIGHS HAVE A LOT OF INTERMITTENT CRAMPING. ADMINISTERED PO DILAUDID AND PT DENIES FURTHER NEEDS. CALL LIGHT IS CLOSE.
--- NOTE | 2020-08-10 00:57 | NUR ---
RESTING, EYES CLOSED, CALL LIHGT AT BEDSIDE, L HIP CRYOCUFF INPLACE, ACTICOAT DRESSING INTACT, DONALD NORWOOD, SCDS, HEEL PROTECTORS IN PLACE, GOOD CMS
--- NOTE | 2020-08-10 02:51 | NUR ---
DROWSY, TOOK SCHEDULED ULTRAM, GOES BACK TO SLEEP, NO FURTHER C/O L HIP OAIN, CALL LIGHT AND FLUIDS AT BEDSIDE. DRESSING INTACT L HIP
--- NOTE | 2020-08-10 04:35 | NUR ---
Up to bsc, voided, back to bed, toe touch l leg, dressing intact, tolerated well, back to bed w 2 PA/FWW, cryocuff L hip incision area.
--- NOTE | 2020-08-10 05:30 | NUR ---
Pt has slept, on room air, c/o L leg cramping and restlessness, Has been medicated with scheduled Ultram and Tylenol, received po Dilaudid with good pain control. Alert and oriented. 2PA/FWW. SL intact and patent. L hip dressing with scant amount of old drainage. SCDS, mahesh hose, heel protectors in place. Coop. Uses call light, tolerating diet and fluids. PT/OT therapy.
--- NOTE | 2020-08-10 06:35 | NUR ---
4/10 l hip pain, medicated with scheduled tylenol and ultram. trisha hercules earlier at her requests. on room air, uses call light, tolerating fluids and diet well, no n/v. cryocuff, scds, heel protectors in place
--- NOTE | 2020-08-10 07:50 | NUR ---
PT AWAKE. UP TO BSC W/ AIDE TO VOID. NOT TOLERATING ACTIVITY WELL AT THIS TIME. RATES PAIN 10/10. STUDENT NURSE SHONTEL IN TO COMPLETE HEAD TO TOE ASSESSMENT. PAIN MORE RELIEVED NOW THAT PT IS BACK IN BED, RATED 5/10. PT IS C/O OVER ACTIVE STOMACH AND FEELING NAUSEOUS. EATING BREAKFAST NOW. CALL LIGHT IN REACH.
--- NOTE | 2020-08-10 08:51 | NUR ---
PT REPORTS NAUSEA SLIGHTLY IMPROVED AFTER BREAKFAST. PRE MEDICATED PRIOR TO PHYSICAL THERAPY, GIVEN PO DILAUDID. PT REPORTS SHE HAD "TERRIBLE" LEG CRAMPS LAST NIGHT. MAIL ROOM RN GAVE DILAUDID AND REPORTS PAIN SUBSIDED AND PT WAS ABLE TO GET SOME SLEEP. VSS. PT REMAINS AFEBRILE. DRSG REMAINS INTACT AND NO NEW DRAINAGE NOTED, NO REDNESS OR WARMTH NOTED. CONTINUING TO UTILIZE POLAR CARE. PT DOES HAVE BRUISE ON RIGHT FOOT THAT EXTENDS FROM PINKY TOE UP TO MID FOOT, SAYS HER FOOT DOES NOT BOTHER HER BUT HER PINKY TOE IS A LITTLE SORE WHEN UP WALKING. DONALD NORWOOD, SCD'S AND HEEL PROTECTORS ON. SITTING UP IN BED AWAITING PHYSICAL THERAPY. CALL LIGHT IN REACH.
--- NOTE | 2020-08-10 09:30 | NUR ---
Spoke with Ashlyn and updated [facility] cannot accept her until Thursday. She states understanding. She would like to go by [facility]. I will call and schedule for Thursday at 9 am. She will call her family and have them bring her walker and her wc in by Thursday. Spoke with Dr. Chiu, updated she can leave at 9 am on Thursday. He will complete orders. Called and scheduled transport with [facility] [phone]. They will pick her up at the front of the hospital at 9 am on Thursday. She will need to pay with her credit care $90 for transport and she is aware of this. Called and spoke with Briana from [facility]. Updated, she requests when orders are completed they are faxed with [employer], and [facility]. I will leave a note for the process description writer.
--- NOTE | 2020-08-10 10:26 | NUR ---
IN TO GIVE PT SCHEDULED TRAMADOL AND PT CONTINUES TO C/O NAUSEA. DR. BALES CALLED AND THIS RN RECEIVED ORDER FOR PO ZOFRAN 4 MG Q8H PRN. GIVEN BY STUDENT NURSE AND [facility] CLINICAL INSTRUCTOR. PT APPEARS TO BE WELL MANAGED W/ CURRENT MEDICATIONS. PHYSICAL THERAPY REPORT PT IS COOPERATIVE AND WORKING WELL WITH THEM. CONTINUING TO OFFER ENSURES W/ MEALS PT STILL HAS POOR APPETITE. RESTING IN BED. NO OTHER NEEDS AT THIS TIME AND CALL LIGHT IS IN REACH.
--- NOTE | 2020-08-10 11:14 | NUR ---
PT REPORTS NAUSEA HAS SUBSIDED AFTER RECEIVING PO ZOFRAN. PT STATES SHE IS "FINALLY CONTENT" AND WOULD LIKE TO GET SOME REST SHE DIDN'T SLEEP WELL LAST NIGHT. DENIES PAIN AND NAUSEA AT THIS TIME. CALL LIGHT IN REACH.
--- NOTE | 2020-08-10 11:36 | NUR ---
PT ALERT, ORIENTED AND RUSLAN OSPINA IN REFRESHING PT'S CRYOPAK. PT C/O LITTLE SLEEP DUE TO CRAMPING IN HER LEGS DURING THE NIGHT. PT REQUESTED A VISIT FROM JOSE PT ALERT, ORIENTED AND RUSLAN OSPINA IS REFRESHING HER CRYOCUFF. PT STATED SHE DIDN'T SLEEP WELL. LEG CRAMPS WERE AN ISSUE LAST NIGHT KEEPING HER UP. PT WANTS TO NAP AND WOULD ALSO LIKE THE TO VISIT TODAY. WILL FOLLOW UP WITH . ST TODAY.
--- NOTE | 2020-08-10 12:30 | NUR ---
PT UP EATING LUNCH. DENIES NAUSEA AND REPORTS PAIN IS MINIMAL AT REST. OFFERED ENSURE W/ LUNCH WELL.
--- NOTE | 2020-08-10 15:32 | NUR ---
IN TO SEE PT AND COMPLETE ASSESSMENT. NO ACUTE CHANGES FROM MORNING ASSESSMENT. PAIN CONTINUES TO BE WELL CONTROLLED W/ CURRENT MEDICATIONS, SEE EMAR. ENCOURAGING PO INTAKE. PT DRINKING ADEQUATE AMOUNT OF FLUIDS AND ATE WELL FOR LUNCH. WORKED WELL WITH PT AMBULATING THE MELGOZA W/ FWW THIS AFTERNOON. BACK TO BED NOW FOR REST. 18G IV IN RFA REMAINS PATENT. DONALD NORWOOD AND SCD'S ON. CALL LIGHT IN REACH.
--- NOTE | 2020-08-10 17:52 | NUR ---
PT VSS. ADEQUATE URINE OUTPUT. PT ATE MOST OF HER DINNER AND TOLERATED WELL. IN TO GIVE SCHEDULED EVENING MEDS. PT RATING LEFT HIP PAIN 2/10. PT REMAINS ON LEFT SIDE TO OFFLOAD COCCYX FOR PREVENTATIVE MEASURES, NO REDNESS NOTED AT THIS TIME. PT IN BED WATCHING TV. CALL LIGHT IN REACH.
--- NOTE | 2020-08-10 18:30 | NUR ---
DR BALES CALLED AND UPDATED ON PT STATUS. IV DUE TO BE ROTATED, NEW ORDER TO DC IV PT HAS NO IV MEDICATIONS ORDERED AND PAIN IS BEING WELL MANAGED W/ ORAL PAIN MEDICATIONS. RFA IV REMOVED, CATH INTACT.
--- NOTE | 2020-08-10 19:10 | NUR ---
SHIFT REPORT RECEIVED FROM MARGARET OLSON. PT IN BED, WATCHING TV. PAIN 07/22. CRYO CUFF, DONALD HOSE, HEEL PROTECTORS AND SCDs IN PLACE. NO NEEDS AT THIS TIME. CALL LIGHT IN REACH.
--- NOTE | 2020-08-10 19:13 | NUR ---
PATIENT ASKED FOR A NEW CHAPSTICK BECAUSE THE OTHER ONE FELL ON THE FLOOR.
--- NOTE | 2020-08-10 19:19 | NUR ---
AFTER LUNCH TODAY PATIENT BRUSHED HER TEETH AND THIS MORNING SHE WASHED HER FACE.
--- NOTE | 2020-08-10 21:36 | NUR ---
IN TO GET PT ONTO THE BSC, 2PA FWW, GOT PT VITALS, PT RESTING IN BED NOW, RN TO BE BACK IN THE ROOM FOR MEDS SHORTLY, ORNALDO FURTHER NEEDS, RN AWARE OF PT'S HIGHER TEMP, I.S. PROVIDED TO PT
--- NOTE | 2020-08-10 21:45 | NUR ---
ASSESSMENT COMPLETED. PT PAIN 1/10 AT REST. GCS 15, A&O X4. LUNGS CLEAR. HEART TONES IRREGULAR. ABD SOFT, NONTENDER, PT STATES NORMAL, BOWEL TONES ACTIVE. LEFT THIGH HAS GENERALIZED EDEMA. BANDAGING INTACT, SEVERAL SPOTS OF DRIED BLOOD ON DRESSING. RIGHT THIGH HAS GENERALIZED EDEMA. CMS INTACT X 4 EXTREMITIES. BRUISE NOTED ON CHIN, RIGHT FOOT AND NEAR INCISION. CRYO CUFF, DONALD HOSE, HEEL PROTECTION AND SCDs ON, TOLERATING WELL. SCHEDULED MEDS PROVIDED. PT HAS NO IV. NO OTHER NEEDS AT THIS TIME. CALL LIGHT IN REACH.
--- NOTE | 2020-08-11 00:30 | NUR ---
IN TO ASST PT TO THE BSC, 2PA WHITNEY JENNINGS IN WELL
--- NOTE | 2020-08-11 00:31 | NUR ---
PT REPORTS 10/10 CRAMPING LEFT LEFG PAIN, PRN PAIN MED PROVIDED. PT UP TO BSC AND BACK TO BED. NO OTHER NEEDS AT THIS TIME. CALL LIGHT IN REACH.
--- NOTE | 2020-08-11 02:23 | NUR ---
SCHEDULED MED PROVIDED. ASSESSMENT COMPLETED. PT STATES LEFT LEG PAIN 5/10. CRYO CUFF, DONALD HOSE, HEEL SUPPORT AND SCDs ON. NO NEW DRAINAGE OR SWELLING NOTED. NO OTHER NEEDS AT THIS TIME. CALL LIGHT IN REACH.
--- NOTE | 2020-08-11 04:38 | NUR ---
IN TO ASST PT TO THE BSC, 2PA FWW, PT BACK IN BED, VITALS DONE, CYRO CUFF REFILLED, NO FURTHER NEEDS AT THIS TIME
--- NOTE | 2020-08-11 06:48 | NUR ---
SCHEDULED MEDS PROVIDED. PT STATES SHE HAS NO PAIN WHILE LYING IN BED. NORY MERCER IN ROOM TO ASSIST PT TO BSC.
--- NOTE | 2020-08-11 06:52 | NUR ---
IN TO ASST PT TO THE BSC, 2PA FWW, NOW BACK TO BED, NO FURTHER NEEDS A THIS TIME
--- NOTE | 2020-08-11 07:20 | NUR ---
this rn received report from kristin leblanc. pt awake and sitting up in bed. call light within reach and pt states that she needs nothing at this time
--- NOTE | 2020-08-11 10:29 | NUR ---
THIS RN IN PTS ROOM TO GIVE PT HER MORNING MEDS. PT LAYING IN BED AND STATES THAT SHE HAS NO PAIN WHILE NOT MOVING. PT THEN STATED THAT SHE NEEDED TO USE THE RESTROOM THIS RN WITH ASSISTANCE FROM ILAN MERCER GOT PT UP TO BEDSIDE COMMED AND BACK TO BED. PT TOLERATED WELL
--- NOTE | 2020-08-11 11:00 | NUR ---
THIS RN IN PTS ROOM TO CHECK ON PT TO SEE IF SHE NEEDS TO USE THE RESTROOM. PT IN BED AND STATES THAT SHE IS DOING SOME BED PHYSICAL THERAPY EXERCISES. PT STATES THAT SHE DOES NOT HAVE THE URGE TO USE THE RESTROOM AT THIS TIME.
--- NOTE | 2020-08-11 12:20 | NUR ---
THIS RN IN PTS ROOM PER PT REQUEST TO GET TO UP TO THE BEDSIDE COMMODE. THIS RN ABLE TO GET PT TO THE BEDSIDE COMMODE AND THEN HAD ASSISTANCE FROM SAI OLSON.
--- NOTE | 2020-08-11 16:25 | NUR ---
THIS RN IN PTS ROOM TO GIVE PT HER AFTERNOON MEDS. PT STATES THAT SHE HAS NO PAIN AT THIS TIME. PT IN GOOD SPIRITS AND HAS NO COMPLIANTS AT THIS TIME.
--- NOTE | 2020-08-11 18:22 | NUR ---
this rn in pts room to check on pt and give her the evenign meds. pt states that she only needs her water filled up. pt states that her pain is well controlled
--- NOTE | 2020-08-11 19:19 | NUR ---
REFILLED PATIENT'S CRYO ALSO SHE ASKED FOR SOME HAND LOTION SO I GOT HER SOME.
--- NOTE | 2020-08-11 20:50 | NUR ---
ROUNDED CHARGE. pt RESTING IN BED WATCHING TV. pt DENIES PAIN, NO CONCERNS AT THIS TIME. CALL LIGHT IN REACH.
--- NOTE | 2020-08-11 22:30 | NUR ---
pt up to bsc, 2pa/fww, touch toe L foot, slightly unsteady, voided, back to bed. Tolerated fair. Coop with assessment. On room air lungs clear bilar, no IV site. L hip acticoat dressing in place with old drainage. edematous L hip to knee area, maehsh hose, scds on, declines heel protectors at this time. Medicated with scheduled Tylenol and Ultram 6/10 L hip pain. Coop with assessment
--- NOTE | 2020-08-12 00:48 | NUR ---
IN TO ASST PT WITH CALL LIGHT, WAS STUCK IN THE SIDERAIL, NO FURTHER NEEDS AT THIS TIME
--- NOTE | 2020-08-12 01:31 | NUR ---
IN TO ASST PT TO THE BSC, 2PA FWW, PT NOW BACK IN BED, NO FURTHER NEEDS AT THIS TIME
--- NOTE | 2020-08-12 01:34 | NUR ---
PT AWAKE, C/O 7/10 L LEG PAIN AND L LEG CRAMPING. MEDICATED WITH SCHEDULED ULTRAM AND 2MG DILAUDID PO. ACTICOAT DRESSING WITH OLD DRAINAGE W/O CHANGES. SCDS, TEDHOSE IN PLACE. DECLINES HEEL PROTECTORS, UP TO BSC 2PA/FWW, VOIDED, BACK TO BED, TOLERATED FAIR, UNSTEADY TOE TOUCH GAIT. CALL LIGHT AT HANDS REACH, TOLERATING FLUIDS WELL. NO N/V
--- NOTE | 2020-08-12 03:54 | NUR ---
Resting, eys closed, no distress, call light, fluids at bedside, scds, tedhose in place
--- NOTE | 2020-08-12 05:25 | NUR ---
IN TO GET PT VITALS, 1-2PA FWW TO THE BSC, PT BACK IN BED, CRYO REFILLED, ICE WATER REFILLED, NO FURTHER NEEDS AT THIS TIME
--- NOTE | 2020-08-12 05:29 | NUR ---
up to bsc, voided, 2pa/fww, unsteady toe touch gait, back to bed. tolerated better than earlier. medicated with scheduled tylenol and ultram
--- NOTE | 2020-08-12 07:38 | NUR ---
this rn received report from tello leblanc. pt appears to be resting at this time with respirations noted.
--- NOTE | 2020-08-12 07:52 | NUR ---
this rn in pts room with sixto ospina to get pt up to bedside commode. pt toelrated well and back to bed safely
[2020-08-12] MEDS ORDERED: HYDROMORPHONE HC2 MG PO (09:24)
[2020-08-12] MEDS ORDERED: TRAMADOL HCL50 MG PO (09:24)
--- NOTE | 2020-08-12 09:35 | NUR ---
THIS RN RECEIVED REPORT FROM ERNESTO FROM PHYSICAL THERAPY THAT PT WAS FEELING NAUSEOUS THIS AM. THIS RN IN PTS ROOM TO OFFER PT SOME ZOFRAN. DISCUSSED WITH PT THAT HE BELIEVES THE NAUSEA TO BE DUE TO THE DILUADID
--- NOTE | 2020-08-12 10:58 | NUR ---
THIS RN DISCUSSED WITH PT THAT STORE SPECIALIST STATED THAT PT CAN HAVE 2 SUPERVISORS PER PT REQUEST.
--- NOTE | 2020-08-12 12:00 | NUR ---
pt resting up in chair at this time. pt has no other needs at this time
--- NOTE | 2020-08-12 12:25 | NUR ---
WHEN I WALKED BY PATIENT IS SITTING UP IN HER CHAIR.
--- NOTE | 2020-08-12 13:57 | NUR ---
this rn in pts room to give pt her afternoon meds. pt sitting up in chair and appears to be comfortable, pt talking on her phone at this time
--- NOTE | 2020-08-12 14:07 | NUR ---
RAPID SWAB COLLECTED
--- NOTE | 2020-08-12 15:58 | NUR ---
THIS RN POKED HER HEAD IN TOS CHECK ON PT. PT APPEARS TO BE READING HER MAGAZINES AT THIS TIME
--- NOTE | 2020-08-12 18:43 | NUR ---
PATIENT REFUSED SHOWER, STATED THAT SHE WANTED TO TAKE A SHOWER AT "[facility]" WHEN SHE GETS THERE TOMORROW
--- NOTE | 2020-08-12 20:00 | NUR ---
2 PA. THIS CHAR FILTER TANK TENDER AND SAUSAGE LINKER CASSIE HELPED PATIENT UP TO BEDSIDE COMMODE. PATIENT CHANGED GOWN TO HER OWN PAJAMA. PATIENT IS BACK IN BED. CRYO CUFF AND ICE WATER REFILLED. SDC'S AND CRYO ARE BACK ON. SAUSAGE LINKER WAS WITH PATIENT. V/S AND I&O'S TAKEN AND RECORDED.
--- NOTE | 2020-08-12 20:53 | NUR ---
uP TO BSC A FEW MINUTES AGO, TOLERATED WELL, VOIDED, BACK TO BED., COMFORTABLE. SCDS, DONALD HOSE IN PLACE, DECLINES HEEL PROTECTORS, TOLERATING DIET AND FLUIDS, COOPERATIVE
--- NOTE | 2020-08-12 23:00 | NUR ---
2 pa patient UP TO BEDSIDE COMMODE. PATIENT IS BACK IN BED. SCD'S AND CRYO ARE BACK ON. NO OTHER NEEDS AT THIS TIME. CALL LIGHT IN REACH.
--- NOTE | 2020-08-13 00:58 | NUR ---
Resting, on room air, no further c/o pain. call lihgt at bedside, cryocuff to Ronald mccloud
--- NOTE | 2020-08-13 02:05 | NUR ---
Received scheduled Ultram, tolerating fluids well, reposions self in bed, L hip edema w/o chanes, dressing intact, tedhose, scds in place, declines heel protectors.
--- NOTE | 2020-08-13 03:06 | NUR ---
Up to bsc, voided and had small soft bm, skin care, attends in place, dressing L hip intact with old drainage, scds, tedhose, cryocuff in place. Back to bed tolerated well.
--- NOTE | 2020-08-13 03:08 | NUR ---
2 PA. PATIENT WAS UP TO THE BEDSIDE COMMODE. PATIENT IS BACK IN BED. PATIENT VOIDED AND HAD A SMALL BOWEL MOVEMENT. CALL LIGHT WITHIN REACH.
--- NOTE | 2020-08-13 04:07 | NUR ---
Resting, eyes closed, on room air, no further c/opain. call light at hands reach
--- NOTE | 2020-08-13 05:27 | NUR ---
Pt has slept, well this shift, Up to bsc with assist, improved toe touch L leg. L HIP acticoat dressing with old drainage in place, edematous above knee. no IV site. Has been medicated with scheduled Tylenol and Ultram and 1X Dilaudid 1mg per bilat legs cramping, effective. cryocuff to L hip. pt is to be dc today to rehab facility. Tolerating diet and fluids
--- NOTE | 2020-08-13 06:38 | NUR ---
this semi driver and primary rn tello HELPED PATIENT GOT UP TO USE THE BEDSIDE COMMODE. V/S AND I&O'S DONE AND CHARTED. PATIENT'S BELONGINGS ARE PACKED READY BY RN TELLO. PATIENT IS UP IN THE CHAIR. CALL LIGHT WITHIN REACH. CRYO CUFF ON.
--- NOTE | 2020-08-13 07:37 | NUR ---
PT UP IN A CHAIR AT TIME OF SHIFT EXCHANGE, REPORT RECEIVED. CALL LIGHT IN LAP. PT DENIES DISCOMFORTS OR NEEDS.
--- NOTE | 2020-08-13 08:00 | NUR ---
KEY RINGER JACEY CALLED [facility] AND SPOKE WITH THEM REGARDING ORDERS. THEY STATE THEY GOT THEM ON WEEKEND AND HAD A QUESTION OF WHICH PHARMACIST WAS AT THE DESK, [place] AND HE CONFIRMED THEIR QUESTION. THEY STATE THEY WERE READY FOR PATIENT. SPOKE WITH DINESH MERCER AND SHE WAS GOING TO CALL [facility] WHO CALLED ON WEEKEND TO CONFIRM THAT HE IS PICK HER UP AT 9AM. CHECKED WITH THEM LATER AND ALL WAS CONFIRMED AND PATIENT WAS DISCHARGED WITH PACKET THAT WAS LEFT AT THEIR STATION WITH ORDERS, PASSR AND CLINICALS.
--- NOTE | 2020-08-13 08:10 | NUR ---
PATIENT WAS UP IN CHAIR, EVERYTHING IS PACKED, PATIENT IS ALL DRESSED, SHE IS PATIENTLY/ANXIOUSLY WAITING TO TRANSFER TO [facility]. WILL CHECK BACK WITH PATIENT AT 0830 TO GET HER IN HER WHEELCHAIR AND READY FOR HER RIDE TO PICK HER UP.
--- NOTE | 2020-08-13 08:45 | NUR ---
PT REFUSES BREAKFAST STATING SHE HAS A MUFFIN. REFUSES OFFER OF FLUIDS OR OTHER FOOD ITEMS. REMAINS UP IN THE CHAIR DENIES DISCOMFORTS OR NEEDS OF. ANTICIPATE DC AT 0900
--- NOTE | 2020-08-13 09:18 | NUR ---
FAXED THE COVID RESULTS AND PHYSICAL THERAPY ASSESSMENTS TO [facility].
== END 2020-08-13 08:55 | DRG 482 ==
LOC: ED 22:09 → MS 22:11
PROVIDERS: ADMIT Specialist; ATTEND Specialist
PROC: 3E0T3BZ Introduction of Anesthetic Agent into Peripheral Nerves and Plexi, Percutaneous Approach (ICD-10-PCS; 2020-08-07)
PROC: 0QSC04Z Reposition Left Lower Femur with Internal Fixation Device, Open Approach (ICD-10-PCS; principal; 2020-08-07 06:45)
DX: S72.452A Displaced supracondylar fracture without intracondylar extension of lower end of left femur, initial encounter for closed fracture (principal); Z20.822 Contact with and (suspected) exposure to COVID-19; G89.18 Other acute postprocedural pain; D64.9 Anemia, unspecified; I10 Essential (primary) hypertension; I25.10 Atherosclerotic heart disease of native coronary artery without angina pectoris; I48.0 Paroxysmal atrial fibrillation; K21.9 Gastro-esophageal reflux disease without esophagitis; E78.5 Hyperlipidemia, unspecified; M85.80 Other specified disorders of bone density and structure, unspecified site; F51.04 Psychophysiologic insomnia; W18.30XA Fall on same level, unspecified, initial encounter; Y92.009 Unspecified place in unspecified non-institutional (private) residence as the place of occurrence of the external cause; Z96.643 Presence of artificial hip joint, bilateral; Z79.899 Other long term (current) drug therapy; Z79.01 Long term (current) use of anticoagulants
CPT/HCPCS: 01360; 36415; 51702; 64447; 71045; 73030; 73552; 76942; 80048; 80053; 83735; 85025; 85610; 93005; 93010; 93306; 94760; 94762; 97110; 97116; 97162; 97530; 99285-25; A9270; C1713; C9803; J0690; J1100; J1170; J1200; J2001; J2250; J2270; J2274; J2405; J2704; J2795; J3010; J3430; J3475; J7030; J7121; U0003

== ENCOUNTER 2021-11-12 11:56 | Emergency (ER) | payer OTHER, MEDICARE ==
[~2021-11-12] VITALS: Ht 160 cm; Wt 61.2 kg
[~2021-11-12 11:56] MED LIST changes: +HYDROMORPHONE HC2 MG PO; +TRAMADOL HCL50 MG PO; +VITAMIN B-6100 MG PO
--- OUTSIDE RECORDS SUMMARY | 2021-11-12 12:00 | XMS ---
PreManage Notification: PIERRE ANDRADE Security Liquor Rectifier Events No recent Security Events currently on file CRITERIA MET - AMANDA CARE PROVIDERS SEEMA Amaya [facility] Current PHONE: [phone] Elliot BRITO Nurse Practitioner: Family Current PHONE: [phone] Vadim has no Care Guidelines for this patient. Lukas VISIT COUNT (12 MO.) Calixto Ram TOTAL 1 NOTE: Visits indicate total known visits. ED/UCC VISIT TRACKING (12 MO.) 11/12/2021 11:[address] [facility] [place] TYPE: Emergency COMPLAINT: - FALL, L LEG INJURY INPATIENT VISIT TRACKING (12 MO.) No inpatient visits to display in this time frame [email or web address]
== END 2021-11-12 14:40 | disposition home or self-care (01) ==
LOC: ED 11:56
DX: S70.02XA Contusion of left hip, initial encounter (principal); S70.12XA Contusion of left thigh, initial encounter; W18.39XA Other fall on same level, initial encounter; Z96.643 Presence of artificial hip joint, bilateral
CPT/HCPCS: 72170; 73552

== ENCOUNTER 2021-12-03 09:43 | Day surgery (SDC) | payer MEDICARE, OTHER ==
[~2021-12-03] VITALS: Ht 160 cm; Wt 61.3 kg
--- NOTE | ~2021-12-03 | OR ---
[facility] [address] [place], [place] [address] Draft DATE OF OPERATION: 12/03/2021 SURGEON: Galilea Fuentes MD PREOPERATIVE DIAGNOSES: 1. Gastroesophageal reflux and occasions of dysphagia. 2. Bowel habit changes including episodes of fecal incontinence and fecal urgency. POSTOPERATIVE DIAGNOSES: 1. Large hiatal hernia with chronic distal esophagitis and mild gastritis. 2. Diverticulosis of colon. 3. Large low rectal polypoid lesion (excised). PROCEDURES: 1. Esophagogastroduodenoscopy with biopsy. 2. Total colonoscopy to cecum with mucosal lift, excision of large villous multilobulated polypoid lesion of low rectum; application of tattoo dye (hot snare and hot morcellation technique). ANESTHESIA: Intravenous sedation propofol infusion; Leela Villegas CRNA INDICATIONS: This 86-year-old white woman is a patient of Dr. See. She is surprisingly independent despite her advanced age. She is having progressive issues with her colon including "gas and fluid" which is "hard to control." She has had a few fecal incontinence episodes as well. She also is noted to have a hiatal hernia based on the CT scan that was performed and hoarseness and shortness of breath from time to time as well as clinical reflux symptoms. She is currently treated with PPI medication, omeprazole on a daily basis. A year ago, she suffered a left femur fracture requiring a fair amount of convalescence. She has had cholecystectomy in the past as well as left femur fracture and hip replacement therapy. She has other medical issues, though [place] [address] [place] and remains quite independent overall. She is here to undergo upper endoscopy and colonoscopy. Understands the risks of bleeding, infection, and perforation. FINDINGS: Upper endoscopy showed a relatively large hiatal hernia with chronic distal esophagitis. No evidence of Montes's epithelium and no stricture. There was mild chronic gastritis as well. PATIENT NAME: PIERRE ANDRADE OPERATIVE REPORT DATE OF : 35 REPORT #: [id number] PHYSICIAN: GALILEA FUENTES MD PCP: GUS SEE MD REPORT IS CONFIDENTIAL AND NOT TO BE RELEASED WITHOUT AUTHORIZATION [facility] [address] [place], [place] [address] Draft As regards to colon, the prep was good. The colon was very redundant, but complete colonoscopy was undertaken to the cecum. She had numerous diverticula of the sigmoid and left colon. Greatest note was a multi lobulated polypoid villous appearing lesion in the low rectum. This was excised completely with hot snare technique using mucosal lift technique of tattoo dye. Complete extirpation of the lesion has been accomplished. PROCEDURE IN DETAIL: The patient was brought to the surgical endoscopy suite and placed in lateral decubitus position after undergoing lidocaine hypopharyngeal anesthesia. A bite block was placed. An intravenous sedation was induced by the tmr teacher with propofol infusional technique. An Olympus video upper endoscope was passed in the hypopharynx. The vocal cords appeared normal. Scope was advanced to the esophagus without problem throughout its length, it was reasonably normal, though senescent changes were identified. The distal portion showed mild chronic inflammatory change, but no evidence of Montes's epithelium, neoplasm or varices. The scope was advanced to the stomach, which was insufflated with air. Rugal folds were normal. Pylorus was normal. Scope was passed through it into the duodenum, which was also reasonably normal. Biopsies were taken of the duodenum to assess for celiac disease. The scope was withdrawn and biopsies then taken of the antrum for both SWATI and pathologic testing. Retroflexed view showed a rather large hiatal hernia. The scope was withdrawn to the distal esophagus and biopsies taken there were chronic inflammatory changes noted, indeed some ulcerative changes as well. Careful withdrawal of scope showed no other abnormalities. The biopsy was taken in the midportion to assess first eosinophilic esophagitis. Plans were then made for colonoscopy. Digital rectal examination was performed and found to be normal. Olympus video colonoscope was passed in the rectum and manipulated throughout the colon. Numerous diverticula were seen in the sigmoid and left colon. The scope was ultimately advanced to the cecum, though abdominal wall stabilization was required as the colon was exceedingly redundant. Once the cecum was identified, the scope was able to be withdrawn and examination throughout showed no sign of abnormality other than the diverticula until that time of which a very low rectal polypoid lesion was noted. It was multilobulated and at first concerning for malignancy, but actually soft and most likely a villous adenoma. Mucosal lift technique was used to inject the spot dye into the central portion of the polypoid lesion allowing for mucosal lift. Using hot snare technique and several excisions were undertaken extricating the polypoid lesion completely. The central portion required additional excision with hot morcellation technique. By this point complete excision was undertaken. The dye well demarcated the submucosa. The polypoid material was gathered with a Hanson net extracted and passed for pathology. She was taken to recovery room at conclusion of procedure, having suffered no known complications. PATIENT NAME: PIERRE ANDRADE OPERATIVE REPORT DATE OF : 35 REPORT #: [id number] PHYSICIAN: GALILEA FUENTES MD PCP: GUS SEE MD REPORT IS CONFIDENTIAL AND NOT TO BE RELEASED WITHOUT AUTHORIZATION [facility] [address] [place] [address] Draft CONCLUDING DIAGNOSES: 1. Hiatal hernia with esophagitis. 2. 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 PLAN: We will recommend Prilosec 20 mg b.i.d. for now and Carafate 1 g p.o. t.i.d. on an empty stomach. As regards to colon, initiate Citrucel one scoop p.o. daily. She will return to see us in approximately 4 to 6 weeks. MD SUSY Salazar/JOSÉ MIGUEL /[id number] cc: Dr. See Copies: ~ PATIENT NAME: PIERRE ANDRADE OPERATIVE REPORT DATE OF : 35 REPORT #: [id number] PHYSICIAN: GALILEA FUENTES MD PCP: GUS SEE MD REPORT IS CONFIDENTIAL AND NOT TO BE RELEASED WITHOUT AUTHORIZATION
[~2021-12-03 09:43] MED LIST changes: +LORAZEPAM0.5 MG PO
--- NOTE | 2021-12-03 12:08 | NUR ---
12/03/21 1208 Sheets,Maris 1201 PT ARRIVED TO PACU ON 4L VIA NC, O2 SAT 89% AND PT NONAROUSABLE, O2 INCREASED TO 6L. PT MOVED UP IN BED AND HOB INCREASED. O2 INCREASED TO 92%. VSS.
--- NOTE | 2021-12-04 16:27 | PATH ---
[facility] [address] [place], [place] [address] Signed SPECIMEN(S): A DUODENAL BIOPSY SPECIMEN(S): B ANTRUM/PYLORUS BIOPSY SPECIMEN(S): C PROXIMAL STOMACH BIOPSY SPECIMEN(S): D DISTAL ESOPHAGEAL BIOPSY SPECIMEN(S): E MID ESOPHAGEAL BIOPSY SPECIMEN(S): F RECTAL POLYP SPECIMEN SOURCE: A. DUODENAL BIOPSY B. ANTRUM/PYLORUS BIOPSY C. PROXIMAL STOMACH BIOPSY D. DISTAL ESOPHAGEAL BIOPSY E. MID ESOPHAGEAL BIOPSY F. RECTAL POLYP CLINICAL HISTORY: Esophagogastroduodenoscopy/colonoscopy. Pre: Reflux with esophagitis, fecal incontinence with fecal urgency. Post: Hiatal hernia, distal esophagitis, mild gastritis, large low rectal polyp, diverticulosis. FINAL PATHOLOGIC DIAGNOSIS: A. Duodenum, biopsy: - Duodenal mucosa with prominent Jesusita's glands. - Negative for increased intraepithelial lymphocytes or villous blunting. - Negative for dysplasia or malignancy. B. Stomach, antrum/pylorus, biopsy: - Antral mucosa with chronic, inactive gastritis. - Negative for Helicobacter organisms on HE stain. - Negative for dysplasia or malignancy. C. Stomach, proximal, biopsy: - Fragments of oxyntic mucosa with features of fundic gland polyp(s). - Negative for Helicobacter organisms on HE stain. - Negative for dysplasia or malignancy. D. Esophagus, distal, biopsy: - Squamous mucosa with no histopathologic abnormality. - Negative for intestinal metaplasia, dysplasia, or malignancy. E. Esophagus, mid, biopsy: - Squamous mucosa with no histopathologic abnormality. - Negative for increased intraepithelial eosinophils. - Negative for intestinal metaplasia, dysplasia, or malignancy. PATIENT NAME: PIERRE ANDRADE PATHOLOGY DATE OF : 35 REPORT #: [id number] PHYSICIAN: SCOT LUIS PCP: GUS RICE MD REPORT IS CONFIDENTIAL AND NOT TO BE RELEASED WITHOUT AUTHORIZATION [facility] [address] [place], [place] [address] Signed F. Low rectum, polyp, polypectomy: - Tubular adenoma. - Negative for high-grade dysplasia or malignancy. NAL:cml:C2NR MICROSCOPIC EXAMINATION: Histologic sections of all submitted blocks are examined by light microscopy. These findings, together with the gross examination, support the pathologic diagnosis. GROSS DESCRIPTION: Six specimens are received in six containers, labeled "CC." A. The specimen, labeled "CC, duodenum biopsy," is received in formalin and consists of one hanson soft tissue fragment that measures 0.2 cm in greatest dimension. The specimen is entirely submitted in cassette (A1). B. The specimen, labeled "CC, antrum biopsy," is received in formalin and consists of two hanson soft tissue fragments that measure 0.1-0.2 cm in greatest dimension. The specimen is entirely submitted in cassette (B1). C. The specimen, labeled "CC, proximal stomach biopsy," is received in formalin and consists of three hanson soft tissue fragments that measure 0.1 cm in greatest dimension. The specimen is entirely submitted in cassette (C1). D. The specimen, labeled "CC, distal esophagus biopsy," is received in formalin and consists of three hanson soft tissue fragments that measure 0.1-0.3 cm in greatest dimension. The specimen is entirely submitted in cassette (D1). E. The specimen, labeled "CC, mid esophagus biopsy," is received in formalin and consists of one hanson soft tissue fragment that measures 0.2 cm in greatest dimension. The specimen is entirely submitted in cassette (E1). F. The specimen, labeled "CC, rectum polyp," is received in formalin and consists of five hanson soft tissue fragments that measure 0.2-1.4 cm in greatest dimension. The biggest tissue fragment is inked and serially sectioned. The specimen is entirely submitted in cassette (F1). JS (under the direct supervision of a pathologist) The Gross Description was prepared using a voice recognition system. The report was reviewed for accuracy; however, sound-alike word errors, addition and/or PATIENT NAME: PIERRE ANDRADE PATHOLOGY DATE OF : 35 REPORT #: [id number] PHYSICIAN: SCOT LUIS PCP: GUS RICE MD REPORT IS CONFIDENTIAL AND NOT TO BE RELEASED WITHOUT AUTHORIZATION [facility] [address] [place] [address] Signed deletions may occur. If there is any question about this report, please contact Client Services. PERFORMING LABORATORY: The technical component was performed by [employer], [address] [place] [id number] (CLIA# [id number]). [facility] [address] [facility] [address] [address] (CLIA# [id number]). Diagnostician: Adele Lenz MD Pathologist Electronically Signed 12/04/2021 Copies: ~ PATIENT NAME: PIERRE ANDRADE PATHOLOGY DATE OF : 35 REPORT #: [id number] PHYSICIAN: SCOT PATHOLOGY PCP: GUS RICE MD REPORT IS CONFIDENTIAL AND NOT TO BE RELEASED WITHOUT AUTHORIZATION
== END 2021-12-03 13:17 | disposition home or self-care (01) ==
LOC: OPS 09:43 → DS 09:43 → OPS 11:15
PROVIDERS: ATTEND Surgery
PROC: 0DB58ZX Excision of Esophagus, Via Natural or Artificial Opening Endoscopic, Diagnostic (ICD-10-PCS; 2021-12-03)
PROC: 3E0H8GC Introduction of Other Therapeutic Substance into Lower GI, Via Natural or Artificial Opening Endoscopic (ICD-10-PCS; 2021-12-03)
PROC: 0DBP8ZX Excision of Rectum, Via Natural or Artificial Opening Endoscopic, Diagnostic (ICD-10-PCS; 2021-12-03)
PROC: 0DB98ZX Excision of Duodenum, Via Natural or Artificial Opening Endoscopic, Diagnostic (ICD-10-PCS; principal; 2021-12-03 11:15)
PROC: 0DB68ZX Excision of Stomach, Via Natural or Artificial Opening Endoscopic, Diagnostic (ICD-10-PCS; 2021-12-03 11:15)
DX: D12.8 Benign neoplasm of rectum (principal); K21.00 Gastro-esophageal reflux disease with esophagitis, without bleeding; K29.50 Unspecified chronic gastritis without bleeding; R15.2 Fecal urgency; R15.9 Full incontinence of feces; K44.9 Diaphragmatic hernia without obstruction or gangrene; K57.30 Diverticulosis of large intestine without perforation or abscess without bleeding; I10 Essential (primary) hypertension; I48.91 Unspecified atrial fibrillation; Z96.643 Presence of artificial hip joint, bilateral; Z90.49 Acquired absence of other specified parts of digestive tract
CPT/HCPCS: J0690; J2001; J2704; J7121

== ENCOUNTER 2022-12-08 06:27 | Emergency (ER) | payer MEDICARE, OTHER ==
[~2022-12-08] VITALS: Ht 160 cm; Wt 60.9 kg
[~2022-12-08 06:27] MED LIST changes: +AMLODIPINE BESYL5 MG PO; +CETIRIZINE HCL10 MG PO
--- OUTSIDE RECORDS SUMMARY | 2022-12-08 06:28 | XMS ---
PreManage Notification: PIERRE ANDRADE Security Senior Gis Analyst Events No recent Security Events currently on file CRITERIA MET - AMANDA CARE PROVIDERS SEEMA Amaya [facility] Current PHONE: [phone] Elliot BRITO Nurse Practitioner: Family Current PHONE: [phone] Vadim has no Care Guidelines for this patient. Lukas VISIT COUNT (12 MO.) Calixto Ram TOTAL 1 NOTE: Visits indicate total known visits. ED/UCC VISIT TRACKING (12 MO.) 12/08/2022 06:28 [facility] [place] TYPE: Emergency COMPLAINT: - DIZZINESS INPATIENT VISIT TRACKING (12 MO.) No inpatient visits to display in this time frame [id number]
[2022-12-08] MEDS ORDERED: AMLODIPINE BESYL5 MG PO (06:42)
[2022-12-08 08:25] VITALS: BP 152/75
--- NOTE | 2022-12-08 18:10 | EKG ---
[facility] [address] [facility] [place] [address] Signed Sinus rhythm with marked sinus arrhythmia Otherwise normal ECG When compared with ECG of 18-NOV-2021 13:12, No significant change was found Confirmed by GUSTAVO CUI MD ([id number]) on 12/08/2022 6:10:32 PM Electronically Signed By: GUSTAVO CUI MD 12/08/221809 PATIENT NAME: PIERRE ANDRADE Electrocardiogram DATE OF : 35 PHYSICIAN: GUSTAVO CUI MD REPORT #: [id number] REPORT IS CONFIDENTIAL AND NOT TO BE RELEASED WITHOUT AUTHORIZATION
== END 2022-12-08 08:25 | disposition home or self-care (01) ==
LOC: ED 06:27
DX: R42 Dizziness and giddiness (principal); I48.91 Unspecified atrial fibrillation; Z79.899 Other long term (current) drug therapy; Z79.01 Long term (current) use of anticoagulants
CPT/HCPCS: 36415; 70450; 80053; 81001; 83735; 84443; 85025; 93005; 93010; 99284-25

== ENCOUNTER 2024-04-30 18:08 | Emergency (ER) | payer MEDICARE, OTHER ==
[~2024-04-30] VITALS: Ht 160 cm; Wt 57.0 kg
[~2024-04-30 18:08] MED LIST changes: +CITALOPRAM HBR10 MG PO; +WARFARIN SODIU2.5 MG PO; +ZETIA10 MG PO
[2024-04-30] MEDS ORDERED: AMOXICILLIN500 MG PO (18:35)
[2024-04-30 18:51] LABS: BASOPHILS 1.2 % (0-2); EOSINOPHILS 1.3 % (0-6); HEMATOCRIT 34.5 % (35.0-50.0); HEMOGLOBIN 11.9 g/dL (12.0-18.0); LYMPHOCYTES 33.8 % (24-44); MCH 32.8 (27-36); MCHC 34.4 g/dl (30-36); MCV 95.4 fl (81-99); MONOCYTES 9.5 % (0-12); NEUTROPHILS 54.2 % (39-80); PLATELET COUNT 266 K/uL (140-440); RBC 3.62 M/ul (4.3-5.7); RDW 17.1 (10.5-15.0)
[2024-04-30 19:10] LABS: ALBUMIN 3.5 g/dL (3.4-5.0); ANION GAP 12.2 (7-21); BILIRUBIN, TOTAL 0.3 ng/dL (0.2-1.0); BUN/CREATININE RATIO 24.67 (6.0-28.6); CALCIUM 8.5 mg/dL (8.5-10.1); CREATININE, SERUM 0.77 mg/dL (0.55-1.02); MAGNESIUM 1.9 mg/dL (1.8-2.4); POTASSIUM 4.2 mmol/L (3.5-5.1)
[2024-04-30 20:53] LABS: BILIRUBIN, URINE NEGATIVE (negative); BLOOD/HGB, URINE TRACE-I (Negative); KETONE, URINE NEGATIVE (Negative); LEUK ESTERASE, URINE MODERATE (negative); NITRITE, URINE NEGATIVE (negative)
[2024-04-30 21:04] LABS: BACTERIA, URINE 1+ /hpf (negative); CASTS, URINE NONE SEEN \\lpf; COLLECTION TYPE, URINE CLEAN CATCH; CRYSTALS, URINE NONE SEEN (0-1+); EPITHELIAL CELLS, URINE SQUAMOUS 2+ /lpf (0-1+); REFLEX CULTURE, URINE No (No)
[2024-04-30] MEDS ORDERED: CEPHALEXIN500 M1 PO (22:26)
[2024-04-30] MEDS ORDERED: CEPHALEXIN MONOHYDRATE 500 MG HOME.PACK PO ONE (22:30)
[2024-04-30 22:33] VITALS: BP 168/85
--- NOTE | 2024-05-02 07:46 | EKG ---
[facility] [address] [facility] [place] [address] Signed Sinus bradycardia Otherwise normal ECG When compared with ECG of 08-DEC-2022 06:57, No significant change was found Confirmed by Aureliano Suarez MD ([id number]) on 05/02/2024 7:46:47 AM Electronically Signed By: AURELIANO SUAREZ MD 05/02/24 0746 PATIENT NAME: PIERRE ANDRADE Electrocardiogram DATE OF : 35 PHYSICIAN: AURELIANO SUAREZ MD REPORT #: [id number] REPORT IS CONFIDENTIAL AND NOT TO BE RELEASED WITHOUT AUTHORIZATION
== END 2024-04-30 22:35 | disposition home or self-care (01) ==
LOC: ED 18:08
PROVIDERS: Family Medicine
DX: N39.0 Urinary tract infection, site not specified (principal); R42 Dizziness and giddiness; R53.1 Weakness; T50.905A Adverse effect of unspecified drugs, medicaments and biological substances, initial encounter; I48.91 Unspecified atrial fibrillation; G62.9 Polyneuropathy, unspecified; Z79.899 Other long term (current) drug therapy
CPT/HCPCS: 36415; 70450; 80053; 81001; 83735; 84484; 85025; 93005; 93010; 99284-25; A9270

== ENCOUNTER 2024-10-04 11:34 | Emergency (ER) | payer MEDICARE, OTHER ==
[~2024-10-04] VITALS: Ht 160 cm; Wt 55.3 kg
[~2024-10-04 11:34] MED LIST changes: +AMOXICILLIN500 MG PO; +CEPHALEXIN500 M1 PO
[2024-10-04 12:15] LABS: BASOPHILS 2.3 % (0-2); EOSINOPHILS 3.9 % (0-6); HEMATOCRIT 27.9 % (35.0-50.0); LYMPHOCYTES 34.6 % (24-44); MCH 27.1 (27-36); MCHC 32.1 g/dl (30-36); MCV 84.4 fl (81-99); MONOCYTES 11.4 % (0-12); NEUTROPHILS 47.8 % (39-80); PLATELET COUNT 328 K/uL (140-440); RBC 3.31 M/ul (4.3-5.7); RDW 19.5 (10.5-15.0)
[2024-10-04 12:30] LABS: INR 2.58 (0.80-1.30); PROTIME 27.8 Sec (11.2-14.2)
[2024-10-04 12:34] LABS: ALBUMIN 3.4 g/dL (3.4-5.0); ALBUMIN/GLOBULIN RATIO 1.13 (1.1-2.4); ANION GAP 11.2 (7-21); BILIRUBIN, TOTAL 0.4 mg/dL (0.2-1.0); BUN/CREATININE RATIO 18.39 (6.0-28.6); CALCIUM 8.3 mg/dL (8.5-10.1); CREATININE, SERUM 0.87 mg/dL (0.55-1.02); POTASSIUM 4.2 mmol/L (3.5-5.1); PROTEIN, TOTAL 6.4 g/dL (6.4-8.2)
[2024-10-04 13:05] VITALS: BP 136/77
--- NOTE | 2024-10-05 23:02 | EKG ---
[facility] [address] [place] [address] Signed Sinus bradycardia Otherwise normal ECG When compared with ECG of 30-APR-2024 18:36, No significant change was found Confirmed by Bia Stephens MD () on 10/05/2024 11:02:00 PM Electronically Signed By: BIA STEPHENS MD 10/05/242301 PATIENT NAME: PIERRE ANDRADE Electrocardiogram DATE OF : 35 PHYSICIAN: BIA STEPHENS MD REPORT #: [id number] REPORT IS CONFIDENTIAL AND NOT TO BE RELEASED WITHOUT AUTHORIZATION
== END 2024-10-04 13:05 | disposition home or self-care (01) ==
LOC: ED 11:34
PROVIDERS: Emergency Medicine
DX: R00.1 Bradycardia, unspecified (principal); R53.1 Weakness; I48.91 Unspecified atrial fibrillation
CPT/HCPCS: 36415; 80053; 84484; 85025; 85610; 93005; 93010; 99284

== ENCOUNTER 2024-10-30 11:48 | Emergency (ER) | payer MEDICARE, OTHER ==
[~2024-10-30] VITALS: Ht 160 cm; Wt 60.0 kg
--- OUTSIDE RECORDS SUMMARY | 2024-10-30 11:55 | XMS ---
PreManage Notification: PIERRE ANDRADE Security Plating Equipment Tender Events No recent Security Events currently on file CRITERIA MET - [facility] - 2 Visits in 30 Days CARE PROVIDERS SEEMA Amaya [facility] Current PHONE: [phone] CAROLYNE YANEZ Internal Medicine Current PHONE: Unknown Elliot BRITO Nurse Practitioner: Family Current PHONE: Unknown Vadim has no Care Guidelines for this patient. EKenna VISIT COUNT (12 MO.) [address] [facility] [address] [facility] TOTAL 3 NOTE: Visits indicate total known visits. ED/UCC VISIT TRACKING (12 MO.) 10/30/2024 11:49 [facility] [place] TYPE: Emergency COMPLAINT: - HEART PROBLEMS 10/04/2024 11:34 [facility] [place] TYPE: Emergency COMPLAINT: - FAINT DIAGNOSES: - Bradycardia, unspecified - Syncope and collapse - Unspecified atrial fibrillation - Weakness 04/30/2024 18:08 [facility] [place] TYPE: Emergency COMPLAINT: - DIZZY/WEAKNESS DIAGNOSES: - Adverse effect of unspecified drugs, medicaments and biological substances, initial encounter - Dizziness and giddiness - Other joint terminal attack controller (current) drug therapy - Polyneuropathy, unspecified - Unspecified atrial fibrillation - Urinary tract infection, site not specified - Weakness INPATIENT VISIT TRACKING (12 MO.) No inpatient visits to display in this time frame [id number]
[2024-10-30] MEDS ORDERED: METOPROLOL TARTRATE 5 MG/5 ML VIAL IV ONE (12:15)
[2024-10-30 12:16] LABS: BASOPHILS 1.1 % (0-2); EOSINOPHILS 2.2 % (0-6); HEMATOCRIT 30.5 % (35.0-50.0); HEMOGLOBIN 9.8 g/dL (12.0-18.0); LYMPHOCYTES 22.1 % (24-44); MCH 26.1 (27-36); MCHC 32.3 g/dl (30-36); MCV 80.8 fl (81-99); MONOCYTES 8.5 % (0-12); NEUTROPHILS 66.1 % (39-80); PLATELET COUNT 375 K/uL (140-440); RBC 3.77 M/ul (4.3-5.7); RDW 20.3 (10.5-15.0)
[2024-10-30 12:25] LABS: INR 3.68 (0.80-1.30); PROTIME 34.3 Sec (11.2-14.2)
[2024-10-30 12:32] LABS: ALBUMIN 3.2 g/dL (3.4-5.0); ALBUMIN/GLOBULIN RATIO 0.89 (1.1-2.4); ANION GAP 15.1 (7-21); BILIRUBIN, TOTAL 0.5 mg/dL (0.2-1.0); BUN/CREATININE RATIO 20.25 (6.0-28.6); CALCIUM 8.2 mg/dL (8.5-10.1); CREATININE, SERUM 0.79 mg/dL (0.55-1.02); MAGNESIUM 2.1 mg/dL (1.8-2.4); POTASSIUM 4.1 mmol/L (3.5-5.1); PROTEIN, TOTAL 6.8 g/dL (6.4-8.2)
[2024-10-30 13:53] VITALS: BP 104/66
--- NOTE | 2024-10-31 18:05 | EKG ---
[facility] [address] [facility] [place] [address] Signed Atrial fibrillation with rapid ventricular response Nonspecific ST abnormality Abnormal QRS-T angle, consider primary T wave abnormality Abnormal ECG When compared with ECG of 04-OCT-2024 11:43, Atrial fibrillation has replaced Sinus rhythm Vent. rate has increased BY [address] now depressed in Lateral leads Nonspecific T wave abnormality now evident in Inferior leads Nonspecific T wave abnormality now evident in Anterior leads Confirmed by Aureliano Suarez MD ([id number]) on 10/31/2024 6:04:49 PM Electronically Signed By: AURELIANO SUAREZ MD 10/31/241804 PATIENT NAME: PIERRE ANDRADE Electrocardiogram DATE OF : 35 PHYSICIAN: AUREILANO SUAREZ MD REPORT #: [id number] REPORT IS CONFIDENTIAL AND NOT TO BE RELEASED WITHOUT AUTHORIZATION
[2024-11-01] MEDS ORDERED: PREGABALIN25 MG PO (11:45)
[2024-11-01] MEDS ORDERED: CARVEDILOL6.25 MG PO (11:45)
== END 2024-10-30 13:55 | disposition home or self-care (01) ==
LOC: ED 11:48
PROVIDERS: Emergency Medicine
DX: I48.0 Paroxysmal atrial fibrillation (principal)
CPT/HCPCS: 36415; 71045; 80053; 83735; 84484; 85025; 85610; 93005; 93010; 96374; 99285-25